=== PATIENT | male | born 1960 | race Caucasian/White ===

== ENCOUNTER → 2017-12-25 | Outpatient (CLI) | payer MEDICAID | LOC: CIMAGING 13:15 | DX: R06.02 Shortness of breath (principal); R91.8 Other nonspecific abnormal finding of lung field | CPT/HCPCS: 71046-PO ==

== ENCOUNTER 2018-05-23 16:58 | Emergency (ER) | payer MEDICAID, OTHER ==
[2018-05-23] MEDS ORDERED: chlordiazePOXIDE 25 MG CAP PO ONE (17:24)
--- NOTE | 2018-05-23 17:29 | EDPHY ---
H & P Stated Complaint: resp and abd pain for >1month; Missed appt over the past months. Time Seen by Provider: 05/23/18 17:15 HPI/ROS: CHIEF COMPLAINT: Wants rehab HISTORY OF PRESENT ILLNESS: The patient is a 58-year-old homeless alcoholic man with a history of COPD who comes to the emergency department requesting help getting into rehab. He states that he has an appointment to check in to [facility] but that he is going to need some medicine. He states that his last drink was only about half an hour ago. He is not tremulous and does not think that he is withdrawing yet but is scared that he will. 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 He is saturating 94% on room air although he is supposed to wear oxygen at home. REVIEW OF SYSTEMS: Constitutional: denies: chills, fever, recent illness, recent injury EENTM: denies: blurred vision, double vision, nose congestion Respiratory: denies: cough, shortness of breath Cardiac: denies: chest pain, irregular heart rate, lightheadedness, palpitations Gastrointestinal/Abdominal: denies: abdominal pain, diarrhea, nausea, vomiting, blood streaked stools Genitourinary: denies: dysuria, frequency, hematuria, pain Musculoskeletal: denies: joint pain, muscle pain Skin: denies: lesions, rash, jaundice, bruising Neurological: denies: headache, numbness, paresthesia, tingling, dizziness, weakness Hematologic/Lymphatic: denies: blood clots, easy bleeding, easy bruising Immunologic/allergic: denies: HIV/AIDS, transplant EXAM: GENERAL: Disheveled, moderate distress HEAD: Atraumatic, normocephalic. EYES: Pupils equal round and reactive to light, extraocular movements intact, sclera anicteric, conjunctiva are normal. ENT: TMs normal, nares patent, oropharynx clear without exudates. Moist mucous membranes. NECK: Normal range of motion, supple without lymphadenopathy or JVD. LUNGS: Breath sounds clear to auscultation bilaterally and equal. No wheezes rales or rhonchi. HEART: Slightly tachycardic at 100. Regular rate and rhythm without murmurs, rubs or gallops. ABDOMEN: Soft, nontender, normoactive bowel sounds. No guarding, no rebound. No masses appreciated. BACK: No CVA tenderness, no spinal tenderness, step-offs or deformities EXTREMITIES: Normal range of motion, no pitting or edema. No clubbing or cyanosis. NEUROLOGICAL: Cranial nerves II through XII grossly intact. Normal speech, normal gait. 5/5 strength, normal movement in all extremities, normal sensation PSYCH: Normal mood, normal affect. SKIN: Warm, dry, normal turgor, no visible rashes or lesions. Source: Patient Exam Limitations: No limitations - Personal History Current Tetanus/Diphtheria Vaccine: Unsure Current Tetanus Diphtheria and Acellular Pertussis (TDAP): Unsure - Medical/Surgical History Hx Asthma: No Hx Chronic Respiratory Disease: Yes Hx Diabetes: No Hx Cardiac Disease: No Hx Renal Disease: No Hx Cirrhosis: No Hx Alcoholism: Yes Hx HIV/AIDS: No Hx Splenectomy or Spleen Trauma: No Other PMH: L HIP replacement, HERNIAS, HTN, COPD, alcoholism - Family History Significant Family History: No pertinent family hx - Social History Smoking Status: Light smoker Alcohol Use: Heavy Drug Use: Marijuana Constitutional: Initial Vital Signs Temperature (C) 36.7 C 05/23/18 17:04 Heart Rate 106 H 05/23/18 17:04 Respiratory Rate 20 05/23/18 17:04 Blood Pressure 138/119 H 05/23/18 17:04 O2 Sat (%) 94 05/23/18 17:04 O2 Delivery Mode Room Air Allergies/Adverse Reactions: No Known Allergies Allergy (Verified 05/23/18 17:13) Home Medications: Medication Instructions Recorded Fluticasone/Salmeter 250/50Mcg 1 puffs IH BID #1 disk 07/14/14 [Advair 250/50 (RX)] Albuterol Sulfate [Albuterol 1 - 2 puffs IH Q4H #2 mdi 07/15/14 Inhaler Hfa] Antidepressant 03/23/15 Meloxicam 03/23/15 Omeprazole 03/23/15 Neurontin 05/23/18 Medical Decision Making ED Course/Re-evaluation: The patient is here essentially requesting Librium to take to the [facility]. He does not want to go to the [facility] however because they do not give him his albuterol. He has plans to go to [facility]. I am not familiar with their protocols. We have called to ask what they would prefer we do. The patient's heart rate is around 100 in the room. He is not tremulous and is not showing signs of current withdrawal. We spoke with the Addiction [facility]. They would prefer that he present with a prepack of Librium. Will give this to the patient and he has called a taxi. Differential Diagnosis: Partial list of the Differential diagnosis considered include but were not limited to; alcoholism, alcohol withdrawal, anxiety and although unlikely based on the history and physical exam, I also considered infection, pancreatitis, head injury. - Data Points Medications Given: Discontinued Medications Chlordiazepoxide (Librium 25 Mg Prepack#6) 1 btl TAKEHOME EDNOW ONE Stop: 05/23/18 17:52 Last Admin: 05/23/18 18:06 Dose: 1 btl Chlordiazepoxide HCl (Librium) 50 mg PO EDNOW ONE Stop: 05/23/18 17:25 Last Admin: 05/23/18 17:50 Dose: 50 mg Departure - Departure Disposition: Home, Routine, Self-Care Clinical Impression: Alcoholism Condition: Fair Instructions: Chlordiazepoxide (By mouth), Alcohol Use Disorder (ED) Additional Instructions: Go directly to [facility] as planned Referrals: NONE *PRIMARY CARE P,. [Primary Care Provider] - As per Instructions AUDRE[facility],. [Clinic] - 1-2 days without fail
[2018-05-23] MEDS ORDERED: CHLORDIAZEPOXIDE 25MG PREPK#6 BTL TAKEHOME ONE (17:51)
[2018-05-23 18:18] VITALS: BP 149/98
== END 2018-05-23 18:18 | disposition home or self-care (01) ==
LOC: CED 16:58
DX: F10.20 Alcohol dependence, uncomplicated (principal); I10 Essential (primary) hypertension; F17.200 Nicotine dependence, unspecified, uncomplicated; J44.9 Chronic obstructive pulmonary disease, unspecified